=== PATIENT | female | born 1975 | race Caucasian/White ===

== ENCOUNTER → 2016-11-15 | Outpatient (CLI) | payer OTHER | LOC: BMCIMAGING 14:48 | PROVIDERS: ATTEND Physician Assistant | DX: M25.562 Pain in left knee (principal) ==

== ENCOUNTER → 2017-02-23 | Outpatient (CLI) | payer OTHER | LOC: BMCIMAGING 08:25 | PROVIDERS: ATTEND Internal Medicine | DX: Z12.31 Encounter for screening mammogram for malignant neoplasm of breast (principal); Z80.3 Family history of malignant neoplasm of breast | CPT/HCPCS: G0202 ==

== ENCOUNTER → 2018-02-23 | Outpatient (CLI) | payer OTHER | LOC: BMCIMAGING 07:54 | PROVIDERS: ATTEND Obstetrics & Gynecology | DX: Z12.31 Encounter for screening mammogram for malignant neoplasm of breast (principal) ==

== ENCOUNTER → 2019-02-26 | Outpatient (CLI) | payer OTHER | LOC: BMCIMAGING 07:15 ==